=== PATIENT | male | born 1970 | race Caucasian/White ===

== ENCOUNTER 2019-08-12 10:36 | Emergency (ER) | payer BC ==
[2019-08-12] MEDS ORDERED: traMADol 50 MG Tab ONE (11:00)
--- NOTE | 2019-08-12 11:00 | EDM.PDOC ---
ED HPI GENERAL MEDICAL PROBLEM - General Chief Complaint: Chest Pain Time Seen by Provider: 08/12/19 10:41 Source of Information: Reports: Patient History Limitations: Reports: No Limitations - History of Present Illness INITIAL COMMENTS - FREE TEXT/NARRATIVE: This is a 48yo M here for Left sided chest pain for the past few days. He was diagnosed with Pneumonia at [facility] on Sunday and has been having Chest pain for the past few days that is worsening. It is 08/21 at this time. He denies shortness of breath and denies fever or chills. He states his pain is the worst symptom and denies anything else at this time. He denies prior history and denies other concerns. Onset: Gradual Duration: Day(s):, Getting Worse Location: Reports: Chest Quality: Reports: Ache, Sharp Severity: Severe Improves with: Reports: None Worsens with: Reports: None Associated Symptoms: Reports: Chest Pain Left Chest Pain Score (Numeric/FACES): 10 - Related Data Allergies Allergy/AdvReac Type Severity Reaction Status Date / Time metformin Allergy Diarrhea Verified 08/12/19 11:09 Home Meds: Home Meds Insulin Glargine,Hum.Rec.Anlog [Lantus Solostar] 1.8 unit SQ DAILY 08/12/19 [ History] ED ROS GENERAL - Review of Systems Review Of Systems: ROS reveals no pertinent complaints other than HPI. ED EXAM, GENERAL - Physical Exam Exam: See Below Exam Limited By: No Limitations General Appearance: Alert, WD/WN, Severe Distress Eye Exam: Bilateral Eye: EOMI, PERRL Ears: Normal TMs Nose: Normal Inspection Throat/Mouth: Normal Inspection Head: Atraumatic, Normocephalic Neck: Normal Inspection, Supple, Non-Tender Respiratory/Chest: No Respiratory Distress, Lungs Clear, Normal Breath Sounds, No Accessory Muscle Use Cardiovascular: Normal Peripheral Pulses, Tachycardia Peripheral Pulses: 2+: Dorsalis Pedis (L), Dorsalis Pedis (R) GI/Abdominal: Normal Bowel Sounds Back Exam: Normal Inspection Extremities: Normal Inspection, Normal Range of Motion Neurological: Alert, Oriented, CN II-XII Intact, Normal Cognition, Normal Gait Psychiatric: Normal Affect, Normal Mood Skin Exam: Warm, Dry, Intact Course - Vital Signs Last Recorded V/S: Last Vital Signs Temp Pulse 110 H 08/12/19 12:20 Resp BP 132/82 10/01/19 12:20 Pulse Ox 95 08/12/19 12:20 - Orders/Labs/Meds Orders: Active Orders 24 hr Category Date Time Status EKG Documentation Completion [RC] ASDIRECTED Care 08/12/19 10:50 Active Chest wo Cont [CT] Stat Exams 08/12/19 10:46 Taken UA RFX OMAR AND CULT IF INDIC [URIN] Stat Lab 08/12/19 10:40 Ordered Labs: Laboratory Tests 08/12/19 08/12/19 08/12/19 Range/Units 11:00 11:00 11:00 WBC 14.6 H (4.0-11.0) K/uL RBC 4.79 (4.50-6.50) M/uL Hgb 13.7 (13.0-18.0) g/dL Hct 41.3 (40.0-54.0) % MCV 86 (76-96) fL MCH 28.6 (27.0-32.0) pg MCHC 33.2 (31.0-35.0) g/dL RDW 13.4 (11.0-16.0) % Plt Count 300 (150-400) K/uL MPV 10.8 H (6.0-10.0) fL Neut % (Auto) 82.4 H (45.0-70.0) % Lymph % (Auto) 8.4 L (20.0-40.0) % [place] % (Auto) 8.0 (3.0-10.0) % Eos % (Auto) 1.0 (1.0-5.0) % Baso % (Auto) 0.2 (0.0-0.5) % Neut # (Auto) 12.02 H (2.00-7.50) K/uL Lymph # (Auto) 1.22 L (1.50-4.00) K/uL [place] # (Auto) 1.16 H (0.20-0.80) K/uL Eos # (Auto) 0.14 (0.04-0.40) K/uL Baso # (Auto) 0.03 (0.02-0.10) K/uL Sodium 139 (136-145) mmol/L Potassium 4.2 (3.5-5.1) mmol/L Chloride 102 (98-107) mmol/L Carbon Dioxide 25.8 (21.0-32.0) mmol/L Anion Gap 15.4 H (5.0-15.0) mmol/L BUN 13 (8-26) mg/dL Creatinine 1.01 (0.70-1.30) mg/dL Est Cr Clr Drug Dosing TNP Estimated GFR (MDRD) > 60 (>60) MLS/MIN BUN/Creatinine Ratio 12.9 (6-25) Glucose 283 H (74-100) mg/dL Lactic Acid 1.18 (0.90-1.70) mmol/L Calcium 9.4 (8.5-10.1) mg/dL Total Bilirubin 1.1 H (0.0-1.0) mg/dL AST 14 L (15-37) U/L ALT 20 (12-78) U/L Alkaline Phosphatase 131 H (46-116) U/L Troponin I < 0.017 (0.000-0.060) ng/mL Total Protein 8.1 (6.4-8.2) g/dL Albumin 3.5 (3.4-5.0) g/dL Globulin 4.6 H (2.2-4.2) g/dL Albumin/Globulin Ratio 0.8 (0.8-2.0) TSH, Ultra Sensitive 0.984 (0.358-3.740) uIU/mL Meds: Medications Discontinued Medications Generic Name Dose Route Start Last Admin Trade Name Robertoq PRN Reason Stop Dose Admin Ketorolac Tromethamine Confirm 08/12/19 11:08 08/12/19 13:17 Toradol Administered 08/12/19 11:09 Not Given Dose 30 mg .ROUTE .STK-MED ONE Ketorolac Tromethamine 15 mg 08/12/19 11:05 08/12/19 11:05 Toradol IVPUSH 08/12/19 11:06 15 mg ONETIME ONE Administration - Re-Assessments/Exams Free Text/Narrative Re-Assessment/Exam: After toradol patient states his pain went from 35 to 7/10. He states he feels much much better. Denies any shortness of breath or other concerns. Departure - Departure Time of Disposition: 12:00 Disposition: Home, Self-Care 01 Condition: Good Clinical Impression: Pneumonia Qualifiers: Pneumonia type: due to unspecified organism Laterality: bilateral Lung location : unspecified part of lung Qualified Code(s): J18.9 - Pneumonia, unspecified organism Instructions: Pleural Effusion, Community-Acquired Pneumonia, Adult, Easy-to- Read Referrals: PCP,None [Primary Care Provider] - Forms: ED Department Discharge Additional Instructions: Please return to the ER if S&S return or get worse. - Problem List & Annotations (1) Pneumonia SNOMED Code(s): 790510472 Code(s): J18.9 - PNEUMONIA, UNSPECIFIED ORGANISM Status: Acute Qualifiers: Pneumonia type: due to unspecified organism Laterality: bilateral Lung location: unspecified part of lung Qualified Code(s): J18.9 - Pneumonia, unspecified organism - Problem List Review Problem List Initiated/Reviewed/Updated: Yes - My Orders Last 24 Hours: My Active Orders 08/12/19 10:40 UA RFX OMAR AND CULT IF INDIC [URIN] Stat 08/12/19 10:46 Chest wo Cont [CT] Stat 08/12/19 10:50 EKG Documentation Completion [RC] ASDIRECTED - Assessment/Plan Last 24 Hours: My Active Orders 08/12/19 10:40 UA RFX OMAR AND CULT IF INDIC [URIN] Stat 08/12/19 10:46 Chest wo Cont [CT] Stat 08/12/19 10:50 EKG Documentation Completion [RC] ASDIRECTED Plan: Counseled on pneumonia treatment and management. Discussed close monitoring and f/u if symptoms persist or worsen. F/u with PCP this week after discharge. Patient to f/u effusion and pneumonia until resolution. Patient agrees to follow up as directed for further care and assessment. F/u sooner if symptoms persist or worsen.
[2019-08-12] MEDS ORDERED: Ketorolac 60 MG/2 ML SDV IVPUSH ONE (11:05)
[2019-08-12] MEDS ORDERED: Ketorolac 30 MG/ML SDV ONE (11:08)
--- NOTE | 2019-08-14 09:11 | CT ---
DATE OF SERVICE: 08/12/19 CLINICAL DATA: severe left sided chest pain UNENHANCED CHEST CT: Multislice acquisition through the chest without IV contrast was performed. No priors. There is a small left pleural effusion. There is poorly defined infiltrate with consolidation involving the lingular segment of the left upper lobe and left lower lobe. Pneumonia is suspected. There is a linear density in the right lower lobe most likely representing linear atelectasis. The right lung is otherwise clear. No pleural effusion on the right. No pneumothorax. The heart size is normal. No significant pericardial effusion. No hilar or mediastinal adenopathy. No other significant findings. IMPRESSION: Infiltrate and consolidation left lung most likely representing pneumonia. Small left pleural effusion. Followup chest x-ray is recommended to confirm resolution. [id number] [facility]
== END 2019-08-12 12:33 | disposition home or self-care (01) ==
LOC: LB.ED 10:36
DX: J18.9 Pneumonia, unspecified organism (principal); Z88.8 Allergy status to other drugs, medicaments and biological substances
CPT/HCPCS: 36415; 71250; 80053; 83605; 84443; 84484; 85025; 93005; 96374; 99285-25; A9270-GY; J1885